=== PATIENT | male | born 1960 | race Caucasian/White ===

== ENCOUNTER 2020-05-06 01:21 | Emergency (ER) | payer MEDICAID ==
[~2020-05-06] VITALS: Ht 165.1 cm; Wt 81.6 kg
--- NOTE | 2020-05-06 01:25 | NUR ---
PT AAOX4. AMBULATORY BIBRA 878 FROM HOME C/O EPIGASTRIC PAIN X 1 HR. PT PLACED IN BED 12 ON MONITOR AND PULSE OX. VSS. NO ACUTE DISTRESS NOTED. MD AT BEDSIDE FOR EVAL. AWITING ORDERS.
[2020-05-06] MEDS ORDERED: ONDANSETRON HCL/PF 4 MG/2 ML VIAL ONE (01:37)
[2020-05-06] MEDS ORDERED: MORPHINE SULFATE INJ 4 MG/ML DISP.SYRIN ONE (01:37)
[2020-05-06] MEDS ORDERED: IOHEXOL-350 100 ML VIAL IV ONE (01:55)
[2020-05-06] MEDS ORDERED: IV NS 0.9% 250 ML IV ONE (01:55)
[2020-05-06 01:59] LABS: CARBON DIOXIDE 25 mmol/L (21-32); CHLORIDE 102 mmol/L (98-107); CREATININE 0.9 mg/dL (0.6-1.3); GLUCOSE 129 mg/dL (74-106); POTASSIUM 3.5 mmol/L (3.5-5.1); SODIUM SERUM 138 mmol/L (136-145); UREA NITROGEN, BLOOD 23 mg/dL (7-18)
[2020-05-06] MEDS: IV NS 0.9% 1,000 ML BAG IV ONE (02:00)
[2020-05-06] MEDS: ONDANSETRON HCL/PF 4 MG/2 ML VIAL IVP ONE (02:03)
[2020-05-06 02:05] LABS: ALANINE AMINOTRANSFERASE 35 U/L (12-78); ALBUMIN 3.7 g/dL (3.4-5.0); ALKALINE PHOSPHATASE 93 U/L (46-116); ASPARTATE AMINOTRANSFERASE 21 U/L (15-37); BILIRUBIN,DIRECT 0.1 mg/dL (0.0-0.2); BILIRUBIN,TOTAL 0.3 mg/dL (0.2-1.0); LIPASE 142 U/L (73-393); TOTAL PROTEIN, SERUM 7.8 g/dL (6.4-8.2)
[2020-05-06] MEDS: MORPHINE SULFATE INJ 2 MG/ML DISP.SYRIN IV ONE (02:05)
[2020-05-06 02:13] LABS: BASOPHILS # (AUTO) 0.1 /CMM (0.0-0.2); BASOPHILS % (AUTO) 0.6 % (0.0-2.0); EOSINOPHILS % (AUTO) 2.1 % (0.0-6.0); HEMATOCRIT 44 % (39-51); LYMPHOCYTES # (AUTO) 2.9 /CMM (0.8-4.8); LYMPHOCYTES % (AUTO) 31.2 % (20.0-44.0); MEAN CORPUSCULAR HGB CONC 34 g/dl (31.0-36.0); MEAN CORPUSCULAR VOLUME 87 fL (80-96); MONOCYTES # (AUTO) 0.7 /CMM (0.1-1.30); MONOCYTES % (AUTO) 7.2 % (2.0-12.0); NEUTROPHILS # (AUTO) 5.5 /CMM (1.8-8.9); NEUTROPHILS % (AUTO) 58.9 % (43.0-81.0); PLATELET COUNT (AUTO) 241 /CMM (150-450); WHITE BLOOD COUNT (AUTO) 9.4 K/uL (4.3-11.0)
--- NOTE | 2020-05-06 05:45 | NUR ---
called kimberly for abd / pelvic CT result
--- NOTE | 2020-05-06 06:59 | NUR ---
Patient discharged to home in stable condition. Written and verbal after care instructions given. Patient verbalizes understanding of instruction.
--- NOTE | 2020-05-06 06:59 | NUR ---
IV removed. Catheter intact and site benign. Pressure and 4x4 applied to site. No bleeding noted.
[2020-05-06 07:00] VITALS: BP 123/76
== END 2020-05-06 07:00 | disposition home or self-care (01) ==
LOC: ER 01:22
DX: R10.13 Epigastric pain (principal); I10 Essential (primary) hypertension; E78.5 Hyperlipidemia, unspecified; F17.200 Nicotine dependence, unspecified, uncomplicated; Z90.89 Acquired absence of other organs; Z98.890 Other specified postprocedural states; Z88.8 Allergy status to other drugs, medicaments and biological substances
CPT/HCPCS: 36415; 71045; 74176; 80048; 80076; 83690; 84484; 85025; 93005; 96361; 96374; 96375; 99285; J2270; J2405; J7030; J7050; Q9967